=== PATIENT | male | born 1980 | race Caucasian/White ===

== ENCOUNTER 2019-05-07 06:13 | Day surgery (SDC) | payer OTHER ==
[~2019-05-07] VITALS: Ht 165.1 cm; Wt 91.8 kg
[2019-05-07] VITALS (24 sets, daily range): BP systolic 102–140; BP diastolic 67–85; PULSE 56–78; RESP 16–26; Ht 165.1 cm; Wt 91.8 kg
[~2019-05-07 06:13] MED LIST: CEFAZOLIN 2 GM/50 ML (PMX) 50 ML IVPB ONE; SOD CHLORIDE 0.9% 1,000 ML IV SCH
[2019-05-07] MEDS ORDERED: BUPIVACAINE 0.25% (MPF) 30 ML INJ ONE (06:48)
--- NOTE | 2019-05-07 08:40 | PREAC ---
Date/Time of Note Date/Time of Note DATE: 05/07/19 TIME: 08:39 Anesthesia Eval and Record Evaluation Time Pre-Procedure Interview DATE: 05/07/19 TIME: 08:39 Age 39 Sex male NPO: 8 hrs Preoperative diagnosis Ventral hernia Planned procedure Laparoscopic hernia repair with mesh Past Medical History Past Medical History: Includes GI: Obesity Surgery & Anesthesia Issues No known issue Meds Anticoagulation: No Beta Timothy within 24 hr: No Reason Beta Timothy not given: Pt. not on B-Timothy No Active Prescriptions or Reported Meds Current Medications Sodium Chloride 1,000 ml @ 75 mls/hr [id number] IV Last administered on 05/07/19at 07:16; Admin Dose 75 MLS/HR; Start 05/07/19 at 06:00; Stop 05/07/19 at 19:19 Meds reviewed: Yes Allergies Coded Allergies: No Known Allergy (Unverified , 10/12/13) Allergies Reviewed: Yes Labs/Studies Labs Reviewed: Reviewed by anesthesiologist Result Diagram: 05/07/19 0650 05/07/19 0650 Laboratory Tests 05/07/19 06:50 test: N/A Pre-procedure Exam Last vitals Vital Signs Date Temp Pulse Resp B/P (MAP) Pulse Ox O2 O2 Flow FiO2 Time Delivery Rate 05/07/19 97.5 65 16 116/83 99 Room Air 07:21 (94) Airway: Adequate mouth opening Mallampati: Mallampati II Teeth: Normal Lung: Normal Heart: Normal ASA Physical Status ASA physical status: 2 Emergency: None Planned Anesthetic General/MAC: ETT Planned Pain Management Parenteral pain med Pre-operative Attestations Prior to commencing anesthesia and surgery, the patient was re-evaluated, there was verification of: *The patient's identity *The results of appropriate recent lab work and preoperative vital signs *The above evaluation not changing prior to induction *Anesthetic plan, risk benefits, alternative and complications discussed with patient/family; questions answered; patient/family understands, accepts and wishes to proceed. LIA CONN MD May 07, 2019 08:40
[2019-05-07] MEDS ORDERED: SUCCINYLCHOLINE CHLORIDE 100 MG/5 ML SYG IV ONE (08:54)
[2019-05-07] MEDS ORDERED: LIDOCAINE 2% (SDV) 5 ML INJ ONE (08:54)
[2019-05-07] MEDS ORDERED: GLYCOPYRROLATE 0.4 MG INJ ONE ×2 (08:54→09:55)
[2019-05-07] MEDS ORDERED: ROCURONIUM 50 MG INJ ONE (08:54)
[2019-05-07] MEDS ORDERED: PROPOFOL 20 ML ONE (08:54)
[2019-05-07] MEDS ORDERED: NEOSTIGMINE 3 MG/3 ML SYRINGE ONE ×2 (08:54→09:55)
[2019-05-07] MEDS ORDERED: MEPERIDINE 100 MG INJ ONE (08:55)
[2019-05-07] MEDS ORDERED: ONDANSETRON 4 MG INJ IV PRN (09:00)
[2019-05-07] MEDS ORDERED: MEPERIDINE 25 MG INJ IV PRN (09:00)
[2019-05-07] MEDS ORDERED: FENTAnyl 50 MCG/ML VIAL IV PRN ×3 (09:00)
[2019-05-07] MEDS ORDERED: HYDROmorphONE 1 MG/5 ML IV SYRINGE IV PRN ×3 (09:00)
[2019-05-07] MEDS ORDERED: MIDAZOLAM 1 MG/ML 2 ML INJ IV PRN (09:00)
[2019-05-07] MEDS ORDERED: METOCLOPRAMIDE 10 MG INJ IV PRN (09:00)
[2019-05-07] MEDS ORDERED: DIPHENHYDRAMINE 50 MG INJ IV PRN (09:00)
[2019-05-07] MEDS ORDERED: OXYCODONE/ACETAMINOPHEN (5/325) TAB PO PRN ×2 (09:00)
[2019-05-07] MEDS ORDERED: POLYMYXIN/BACITRACIN 1L IRRIG IRR ONE (09:49)
[2019-05-07] MEDS ORDERED: ONDANSETRON 4 MG INJ ONE (09:58)
--- NOTE | 2019-05-07 10:05 | OPR ---
Date/Time of Note Date/Time of Note DATE: 05/07/19 TIME: 10:02 Operative Report Procedure Date: May 07, 2019 Preoperative Diagnosis incarcerated ventral hernia Postoperative Diagnosis same Operation/Procedure Performed 1. laparoscopic incarcerated ventral hernia repair 2. implantation of prolene 15 x 15 cm mesh 3. therapeutic injection of subcutaneous local anesthesia Surgeon see signature line Chief Administrative Officer none Anesthesia Type: general Estimated Blood Loss: 0 - 10 ml's Transfusion none Specimen none Grafts/Implants none Complications none Pt Condition Post Procedure: stable Indications This is a 39-year-old male with an incarcerated ventral hernia. He requires s urgical repair. Risks alternatives benefits and personally discussed the patient. Patient expresses understanding and consents to the operation. Procedure Description Patient is taken to the OR and prepped and draped in usual sterile fashion. Surgical timeout was performed. IV antibiotics were given. Left upper quadrant 5 mm transverse incision was made to 15 blade. Using a 5 mm optical trocar optical entry is performed. Pneumoperitoneum is established. Left flank 12 mm optical trochars placed under direct visualization. Left lower quadrant 5 mm optical trochars placed under direct visualization. Upon initial inspection there is incarcerated contents. Laparoscopic lysis of adhesions was performed this allowed mobilization and reduction of the contents. The hernia defect was then identified the fascial edges are freshened. The fascia was then closed p rimarily using #1 Vicryl in interrupted fashion with Endo Close and laparoscopic techniques. Underlay mesh with a 15 x 15 cm Prolene mesh is secured in place with secure strap. Approximate 45 cm of coverage in all directions were ensured. Good hemostasis status. All ports removed under direct visualization. Skin is closed and skin francisco. Therapeutic contains local anesthesia is injected at the incision site. Dry dressings were applied. Angelito VALENZUELA May 07, 2019 10:05
[2019-05-07] MEDS ORDERED: HYDROCODONE/APAP (5/325) TAB PO ONE (10:30)
[2019-05-07] MEDS ORDERED: CEFAZOLIN 1 GM INJ ONE (10:58)
--- NOTE | 2019-05-07 11:49 | PAC ---
Date/Time of Note Date/Time of Note DATE: 05/07/19 TIME: 11:48 Post-Anesthesia Notes Post-Anesthesia Note Last documented vital signs Vital Signs Date Temp Pulse Resp B/P (MAP) Pulse Ox O2 O2 Flow FiO2 Time Delivery Rate 05/07/19 68 23 110/73 95 Room Air 11:33 (85) 05/07/19 2.0 10:48 05/07/19 98.3 10:16 Activity: WNL Respiratory function: WNL Cardiovascular function: WNL Mental status: Baseline Pain reasonably controlled: Yes Hydration appropriate: Yes Nausea/Vomiting absent: Yes Comments BT: 98.5 LIA CONN MD May 07, 2019 11:49
== END 2019-05-07 14:00 | disposition home or self-care (01) ==
LOC: SDS 06:13
PROVIDERS: ATTEND Surgery
DX: K43.6 Other and unspecified ventral hernia with obstruction, without gangrene (principal); E66.9 Obesity, unspecified; Z68.33 Body mass index [BMI] 33.0-33.9, adult
CPT/HCPCS: 49653; 80053; 85025; 85610; 85730; J0690; J1170; J2175; J2405; J2710; J3010; Z7512; Z7610